=== PATIENT | female | born 1990 | race Caucasian/White ===

== ENCOUNTER 2016-11-12 05:32 | Inpatient (IN) | payer MEDICAID ==
[~2016-11-12] VITALS: Ht 170.2 cm; Wt 106.8 kg
[~2016-11-12 05:32] MED LIST: ACET-62 PO; prenatal vitamin
[2016-11-12] MEDS ORDERED: OXYTOCIN 30 UNIT in D5LR 500 ML SCH (05:45)
[2016-11-12] MEDS ORDERED: MAG-AL + SIM LIQUID 30 ML UDC PO PRN ×2 (05:45→17:15)
[2016-11-12] MEDS ORDERED: CALCIUM CARBONATE 500mg Chewable TAB PO PRN ×2 (05:45→17:15)
[2016-11-12] MEDS ORDERED: LIDOCAINE 1% (10mg/ml) 2ml SDV ID PRN (05:45)
[2016-11-12] MEDS ORDERED: ACETAMINOPHEN 500 MG TABLET PO PRN ×2 (05:45→17:15)
--- OUTSIDE RECORDS SUMMARY | 2016-11-12 05:45 | XMS REPORT | Continuity of Care Document ---
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 Name Role Phone ELIZA MADRIGAL MD Primary Care Physician [phone] Insurance Providers Guarantor Anastasiya Villalta Address [address] [place] [place] [address] Email [email or web address] Payer [facility] Community Plan Policy Number [id number] Subscriber's Name Anastasiya Villalta [place] Relationship 18 Self Effective Date 16 Expiration Date 16 Payer [facility] Policy Number [id number] Subscriber's Name Anastasiya Villalta [place] Relationship 18 Self Group Number [id number] Advance Directives Directive Response Recorded Date/Time Ordered Resuscitation Status Full Code 03/06/14 10:24pm DPOA for Healthcare Only No 07/17/16 3:54pm Living Will No 07/17/16 3:54pm Problems Active Problems Medical Problem Onset Date Status IUD check up Unknown Acute Normal delivery at term 03/17/2014 Acute 03/06/2014 Acute Status post normal vaginal delivery 03/17/2014 Acute Medications Current Home Medications Medication Dose Units Route Directions Days Qty Instructions Start Date Vitamin 1 Tab Daily 07/17/16 Past Home Medications Medication Directions Ordered Status Hydrocodone Bit/Acetaminophen 1 Tab Tablet, 1-2 Tab Oral Every 4 Hours as needed for Pain 03/17/14 Discontinued Social History Social History Problem Response Recorded Date/Time Onset Date Status Reason for Hospitalization Migraine, abdominal pain, dehydration 07/18/2016 7 :45am Not Applicable Not Applicable Hx Substance Use No 08/26/2014 7:08pm Not Applicable Not Applicable Has the pt used tobacco in the last 12 months No 07/17/2016 3:56pm Not Applicable Not Applicable Tobacco Usage none 08/26/2014 7:37pm Not Applicable Not Applicable Query Response Start Date Stop Date Smoking Status Never smoker Hospital Discharge Instructions Instructions: Care Instructions: I was in the hospital because (patient own words): "headache,stomachache,dehydration" Discharge Diet: Regular Diet Discharge Activity: N/A Follow Up Appointments: Follow up as scheduled with . Pending Lab / Results: No Pending Lab Expected Signs/Symptoms: N/A Notify Physician If: N/A During Business Hours:: N/A After Business Hours:: N/A Pain Management/Treatment: Continue Tylenol 1000mg every 6 hours as needed for headaches. Wound/Incision Care: N/A Condition at time of discharge: Good Plan of Care Discharge Date 07/18/16 8:11am Disposition 01 DISCHARGED HOME, SELF-CARE Instructions/Education Provided DI for Dehydration -- Adult Prescriptions See Medication Section Care Plan and Goals See Discharge Instructions Section Functional Status Query Response Date Recorded Mobility Status Ambulatory July 17, 2016 3:51pm Assistive Devices None July 17, 2016 3:51pm Activity Limitations Weakness Fatigue Dizziness Pain July 17, 2016 3:51pm Feeding Ability Independent July 17, 2016 3:51pm Toileting Ability Independent July 17, 2016 3:51pm Grooming Ability Independent July 17, 2016 3:51pm Dressing Ability Independent July 17, 2016 3:51pm Driving Ability Independent July 17, 2016 3:51pm Housework Ability Independent July 17, 2016 3:51pm Meal Preparation Ability Independent July 17, 2016 3:51pm Stair Climbing Ability Independent July 17, 2016 3:51pm Ability to complete ADL's impeded by No change July 17, 2016 3:54pm Cognitive/Perceptual Impairments Impaired vision July 17, 2016 3:51pm Visual Assistive Devices Glasses July 17, 2016 3:51pm Allergies, Adverse Reactions, Alerts Allergen Type Severity Reaction Status Last Updated NSAIDS (Non-Steroidal Anti-Inflamma Allergy Severe Active 07/17/16 Benzocaine Allergy Mild SWELLING Active 07/17/16 zinc chloride Allergy Mild SWELLING Active 07/17/16 Allantoin Allergy Mild SWELLING Active 11/23/16 Naproxen Allergy Mild SWELLING Active 07/17/16 Benzalkonium chloride Allergy Mild SWELLING Active 07/17/16 Carbamide peroxide Allergy Mild SWELLING Active 07/17/16 Immunizations Query Response on File Recorded Date/Time Hx Influenza Vaccination Y apr 2016 07/17/16 3:56pm Hx Influenza Vaccination Y apr 2016 07/17/16 3:56pm Influenza Vaccine Hx apr 2016 07/17/16 3:58pm Vital Signs Acute Vital Signs Vital Response Date/Time Temperature (Fahrenheit) 95.7 deg F (96.8 - 99.1) 07/17/2016 11:54pm Temperature (Calculated Celsius) 35.78825 degrees C (36.0 - 37.3) 07/17/2016 11:54pm Pulse Rate (adult) 64 bpm (60 - 100) 07/17/2016 11:54pm Respiratory Rate 14 breaths/min (10 - 20) 07/17/2016 11:54pm O2 Sat by Pulse Oximetry 98 % (90 - 100) 07/17/2016 11:54pm Oxygen Delivery Method Room Air 07/17/2016 11:54pm Blood Pressure 107/65 mm Hg 07/17/2016 11:54pm Blood Pressure Source Automatic Cuff 07/17/2016 11:54pm Height (Feet) 5 feet 07/17/2016 3:52pm Height (Inches) 7.00 inches 07/17/2016 3:52pm Weight (Kilograms) 102.600 kg 07/17/2016 3:52pm Body Mass Index (BMI) 35.4 07/17/2016 3:52pm Results Laboratory Results Test Name Result Units Flags Reference Collection Date/Time Result Date/ Time Comments White Blood Count 8.5 T/MM3 4.5-11.0 07/17/2016 10:57am 07/17/2016 11: 05am Red Blood Count 4.54 M/MM3 4.00-5.20 07/17/2016 10:57am 07/17/2016 11: 05am Hemoglobin 13.3 GM/DL 12-16 07/17/2016 10:57am 07/17/2016 11:05am Hematocrit 38.3 % 36-46 07/17/2016 10:57am 07/17/2016 11:05am Mean Corpuscular Volume 84.4 UM3 80-100 07/17/2016 10:57am 07/17/2016 11:05am Mean Corpuscular Hemoglobin 29.3 UUG 26-34 07/17/2016 10:57am 2015 11:05am Mean Corpuscular Hemoglobin Concent 34.7 GM/DL 31-37 07/17/2016 10:57am 07/17/2016 11:05am RDW Standard Deviation 39.6 FL 36.9-50.2 07/17/2016 10:57am 07/17/2016 11:05am Platelet Count 184 T/MM3 130-400 07/17/2016 10:57am 07/17/2016 11:05am Mean Platelet Volume 9.9 UM3 9.4-12.4 07/17/2016 10:57am 07/17/2016 11: 05am Icterus Index < 2 0-7 07/17/2016 10:57am 07/17/2016 11:14am Chemistry Specimen Hemolysis < 15 0-25 07/17/2016 10:57am 07/17/2016 11:14am 0-25: Specimen Exhibited No Hemolysis. Turbidity < 20 0-20 07/17/2016 10:57am 07/17/2016 11:14am Sodium Level 135 MEQ/L 134-144 07/17/2016 10:57am 07/17/2016 11:14am Potassium Level 3.8 MEQ/L 3.6-5 07/17/2016 10:57am 07/17/2016 11:14am Chloride Level 106 MEQ/L 98-107 07/17/2016 10:57am 07/17/2016 11:14am Carbon Dioxide Level 20 MEQ/L L 22-30 07/17/2016 10:57am 07/17/2016 11: 14am Anion Gap 9 MEQ/L 5-15 07/17/2016 10:57am 07/17/2016 11:14am Blood Urea Nitrogen 7.0 MG/DL 7-17 07/17/2016 10:57am 07/17/2016 11: 14am Creatinine 0.5 MG/DL L 0.7-1.2 07/17/2016 10:57am 07/17/2016 11:14am BUN/Creatinine Ratio 14 RATIO 6-26 07/17/2016 10:57am 07/17/2016 11: 14am Glomerular Filtration Rate Calc 152 07/17/2016 10:57am 07/17/2016 11:14am Glucose Level 77 MG/DL 65-110 07/17/2016 10:57am 07/17/2016 11:14am Calculated Osmolality 257 MOSM/KG L 261-280 07/17/2016 10:57am 2015 11:14am Calcium Level 8.7 MG/DL 8.4-10.2 07/17/2016 10:57am 07/17/2016 11:14am Total Bilirubin 0.50 MG/DL 0.20-1.30 07/17/2016 10:57am 07/17/2016 11: 14am Alkaline Phosphatase 74 U/L 38-126 07/17/2016 10:57am 07/17/2016 11: 14am Total Protein 6.5 G/DL 6.3-8.2 07/17/2016 10:57am 07/17/2016 11:14am Albumin 3.4 G/DL L 3.5-5.0 07/17/2016 10:57am 07/17/2016 11:14am Globulin 3.1 G/DL 2.4-3.6 07/17/2016 10:57am 07/17/2016 11:14am Albumin/Globulin Ratio 1.1 RATIO 1.1-2.2 07/17/2016 10:57am 07/17/2016 11:14am Aspartate Amino Transf (AST/SGOT) 17 U/L 14-36 07/17/2016 10:57am 07/17 11:14am Alanine Aminotransferase (ALT/SGPT) 26 U/L 9-52 07/17/2016 10:57am 11:14am Thyroid Stimulating Hormone (TSH) 0.89 MIU/L 0.47-4.68 07/17/2016 10: 57am 07/17/2016 11:44am Procedures Procedure Status Date Provider(s) HYDRATE IV INFUSION ADD-ON Completed 05/16/16 HYDRATE IV INFUSION ADD-ON Completed 05/16/16 HYDRATE IV INFUSION ADD-ON Completed 05/16/16 THER/PROPH/DIAG INJ IV PUSH Completed 05/16/16"INJECTION, ONDANSETRON HYDROCHLORIDE, PER 1 MG" Completed 05/16/16"RINGERS LACTATE INFUSION, UP TO 1000 CC" Completed 05/16/16"RINGERS LACTATE INFUSION, UP TO 1000 CC" Completed 05/16/16 Encounters Encounter Location Arrival/Admit Date Discharge/Depart Date Attending Provider Discharged Inpatient (obs) [facility] 07/17/16 3:15pm 07/18/16 8: 11am PRASHANTH BOUDREAUX MD Registered Recurring [facility] 07/17/16 10:25am CONSTANZA PIERRE MD Discharged Recurring [facility] 05/16/16 11:21am 05/16/16 3:45pm ARIEL SANDOVAL MD
--- OUTSIDE RECORDS SUMMARY | 2016-11-12 05:45 | XMS REPORT | Continuity of Care Document ---
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 Role Phone ELIZA MADRIGAL MD Primary Care Physician [phone] Insurance Providers Guarantor Villalta,Emma Orlin Address [address] [place] [address] Email [email or web address] Payer [facility] Community Plan Policy Number [id number] Subscriber's Name Anastasiya Villalta Relationship 18 Self Effective Date 16 Expiration Date 16 Advance Directives Directive Response Recorded Date/Time Ordered Resuscitation Status Full Code 03/06/14 10:24pm Problems Active Problems Medical Problem Onset Date Status IUD check up Unknown Acute Normal delivery at term 03/17/2014 Acute 03/06/2014 Acute Status post normal vaginal delivery 03/17/2014 Acute Medications Current Home Medications Medication Dose Units Route Directions Days Qty Instructions Start Date Acetaminophen 500 Mg Tablet 1-2 Tab Oral as needed for Pain Do not exceed 3,200 mg of acetaminophen in a 24 hours period. 10/23/16 Vitamin 1 Tab Daily 07/17/16 Past Home Medications Medication Directions Ordered Status Hydrocodone Bit/Acetaminophen 1 Tab Tablet, 1-2 Tab Oral Every 4 Hours as needed for Pain 03/17/14 Discontinued Social History Social History Problem Response Recorded Date/Time Onset Date Status Hx Substance Use No 08/26/2014 7:08pm Not Applicable Not Applicable Has the pt used tobacco in the last 12 months No 07/17/2016 3:56pm Not Applicable Not Applicable Tobacco Usage none 08/26/2014 7:37pm Not Applicable Not Applicable Query Response Start Date Stop Date Smoking Status Never smoker Hospital Discharge Instructions No hospital discharge instructions. Plan of Care Discharge Date 10/23/16 3:00pm Prescriptions See Medication Section Functional Status No functional status results. Allergies, Adverse Reactions, Alerts Allergen Type Severity Reaction Status Last Updated NSAIDS (Non-Steroidal Anti-Inflamma Allergy Severe Active 10/23/16 Benzocaine Allergy Mild SWELLING Active 10/23/16 zinc chloride Allergy Mild SWELLING Active 10/23/16 Allantoin Allergy Mild SWELLING Active 10/23/16 Naproxen Allergy Mild SWELLING Active 10/23/16 Benzalkonium chloride Allergy Mild SWELLING Active 10/23/16 Carbamide peroxide Allergy Mild SWELLING Active 10/23/16 Immunizations Query Response on File Recorded Date/Time Hx Influenza Vaccination Y apr 2016 07/17/16 3:56pm Hx Influenza Vaccination Y apr 2016 07/17/16 3:56pm Influenza Vaccine Hx apr 2016 07/17/16 3:58pm Vital Signs No known vital signs results. Results Laboratory Results Test Name Result Units [...] 07/17/2016 11:44am Procedures Procedure Status Date Provider(s) Comprehen metabolic panel Completed 07/17/16 Assay thyroid stim hormone Completed 07/17/16 Complete cbc automated Completed 07/17/16 Hydrate iv infusion add-on Completed 07/17/16 Ther/proph/diag iv inf init Completed 07/17/16 Tx/proph/dg addl seq iv inf Completed 07/17/16 Tx/pro/dx inj new drug addon Completed 07/17/16 541675"INJECTION, DIMENHYDRINATE, UP TO 50 MG" Completed 07/17/16 608936"INJECTION, ONDANSETRON HYDROCHLORIDE, PER 1 MG" Completed 07/17/16 199921"INFUSION, NORMAL SALINE SOLUTION , 250 CC" Completed 07/17/16 [id number]"RINGERS LACTATE INFUSION, UP TO 1000 CC" Completed 07/17/16 D5LR 1000 ML Completed 07/17/16 Extremity study Completed 09/06/16 Encounters Encounter Location Arrival/Admit Date [facility]/16 3:00pm CONSTANZA PIERRE MD Registered Clinic [facility] 09/06/16 2:59pm PRASHANTH BOUDREAUX MD Discharged Recurring [facility] 07/17/16 10:25am 08/24/16 11: 07pm CONSTANZA PIERRE MD
--- OUTSIDE RECORDS SUMMARY | 2016-11-12 05:45 | XMS REPORT | Continuity of Care Document ---
Author Author [facility] Organization [facility] Address Unknown Phone Unavailable Care Team Providers Care Mapping Supervisor Name Role Phone ELIZA MADRIGAL MD Primary Care Physician [phone] Insurance Providers Guarantor Anastasiya Villalta Address [address] [place] [address] Email [email or web address] Payer [facility] Community Plan Policy Number [id number] Subscriber's Name Anastasiya Villalta [place] Relationship 18 Self Effective Date 16 Expiration Date 16 Payer [facility] Policy Number [id number] Subscriber's Name Anastasiya Villalta [place] Relationship 18 Self Group Number [id number] Advance Directives Directive Response Recorded Date/Time Ordered [...] - 99.1) 07/17/2016 11:54pm Temperature (Calculated Celsius) 35.22527 degrees C (36.0 - 37.3) 07/17/2016 11:54pm [...] Date Provider(s) HYDRATE IV INFUSION ADD-ON Completed 07/17/16 HYDRATE IV INFUSION ADD-ON Completed 07/17/16 THER/PROPH/DIAG INJ IV PUSH Completed 07/17/16 INITIAL OBSERVATION CARE Completed 07/17/16 INITIAL OBSERVATION CARE Completed 07/17/16 INITIAL OBSERVATION CARE Completed 07/17/16 [id number]"INJECTION, PROCHLORPERAZINE, UP TO 10 MG" Completed 07/17/16 D5LR 1000 ML Completed 07/17/16 D5LR 1000 ML Completed 07/17/16 D5LR 1000 ML Completed 07/17/16 Encounters Encounter Location Arrival/Admit Date Discharge/Depart Date Attending Provider Discharged Inpatient (obs) [facility] 07/17/16 3:15pm 07/18/16 8: 11am PRASHANTH BOUDREAUX MD Discharged Recurring [facility] 07/17/16 10:25am 08/24/16 11: 07pm CONSTANZA PIERRE MD
[2016-11-12 06:22] LABS: HCT - HEMATOCRIT 34.3 % (36-46); HGB - HEMOGLOBIN 11.1 GM/DL (12-16); MEAN CORPUSCULAR HGB 25.4 UUG (26-34); MEAN CORPUSCULAR HGB CONC(MCHC 32.4 GM/DL (31-37); MEAN CORPUSCULAR VOLUME 78.5 UM3 (80-100); MEAN PLATELET VOLUME 10.6 UM3 (9.4-12.4); RED BLOOD COUNT 4.37 M/MM3 (4.00-5.20); WBC - WHITE BLOOD COUNT 11.9 T/MM3 (4.5-11.0)
[2016-11-12 06:23] VITALS: BP 152/82; PULSE 96; RESP 16; TEMP 98.1
--- NOTE | 2016-11-12 08:21 | ANESOB ---
Epidural/ Date/Time DATE: 11/12/16 TIME: 08:19 Preop Diagnosis Height: 5 ' 7.00 " Weight: 106.800 kg BMI: kg/m2 Temperature: 98.1 Blood Pressure: 152/82 Heart Rate: 96 Respiratory Rate: 16 P:1 Medications & Allergies Inpatient Medications Current Medications Medications (Trade) Dose Ordered Sig/Satish Start Time Stop Time Status Last Admin Dose Admin Lidocaine HCl 0.2 mg 0.2 mg PRN PRN 11/12/16 05:45 Lactated Ringer's (Lactated Ringers) 1,000 ml @ 0 mls/hr Q0M PRN 11/12/16 05:42 Acetaminophen (Tylenol Extra Strength) 1-2 TABS = 500-1,000 MG Q4H PRN 11/12/16 05:45 Al Hydroxide/Mg Hydroxide (Maalox) 30 ml Q4H PRN 11/12/16 05:45 Calcium Carbonate 1-2 TABS Q2H PRN 11/12/16 05:45 Dextrose/Lactated Ringer's 1,000 ml @ 0 mls/hr Q0M PRN 11/12/16 06:00 Oxytocin/Dextrose/ Lactated Ringer's (Pitocin/D5lr) 503 ml @ 0 mls/hr Q0M 11/12/16 05:45 Discontinued Medications Acetaminophen (Acetaminophen) 500 Mg Tablet, 1-2 TAB PO for PAIN, (Reported) Do not exceed 3,200 mg of acetaminophen in a 24 hours period. [ vitamin] , 1 TAB DAILY, (Reported) Coded Allergies: NSAIDS (Non-Steroidal Anti-Inflamma (Verified Allergy, Severe, 10/23/16) reports swelling in eyes and lips with nsaids allantoin (Verified Allergy, Mild, SWELLING, 10/23/16) benzalkonium chloride (Verified Allergy, Mild, SWELLING, 10/23/16) benzocaine (Verified Allergy, Mild, SWELLING, 10/23/16) carbamide peroxide (Verified Allergy, Mild, SWELLING, 10/23/16) naproxen (Verified Allergy, Mild, SWELLING, 10/23/16) zinc chloride (Verified Allergy, Mild, SWELLING, 10/23/16) Medical/Surgical History Anesthesia PMH: Reports: Asthma, , Denies: *Diabetes, *Hypertension, * MA, Anesthesia Reactions, Bld Transfusion Reaction, CHF, COPD, CVA/Stroke/TIA, Cancer, Malignant Hyperthermia, Seizures Smoking Status: Current every day smoker Does patient use chewing tobac: No Second Hand Exposure: No Substance Use Type: does not use Alcohol Intake: none Anesthesia Adverse Reactions: FOUND none Family Hx of Anesthesia Advers: none Hx of Motion Sickness: No Complications During : No Pertinent Findings Laboratory Tests 11/12/16 06:06 EKG Rhythm: Sinus Rhythm Physical Exam Respiratory: Lungs clear Cardiovascular: Regular rate, rhythm Airway Assessment Mallampati Score: II TMD: 3 Fingerbreadths Neck Extension: Good Overall Assessment: May Be Diff Intubation ASA: 2 Discussion Discussed risks/options/alternatives of anesthesia. Patient consents. Nursing pain assessment noted. Present for Discussion: Present: Spouse Attestation Statement Prior to the delivery of any anesthetic medication, I examined the patient, developed the plan, obtained the patient's consent and discussed the risk and benefits of the procedure with the patient/guardian. If the note happens to be signed after anesthesia start time, it is only due to providing efficient care of the patient and documenting at a time when the computer is available. PARVEEN NOLAN RIG WELDER Nov 12, 2016 08:21
[2016-11-12] MEDS: D5LR 1,000 ML IV PRN ×2 (10:55→15:42)
[2016-11-12] MEDS: LR 1,000 ML IV PRN ×2 (10:55→15:41)
[2016-11-12] MEDS ORDERED: NALBUPHINE 10mg/ml INJECTION IV ONE (13:15)
[2016-11-12] MEDS ORDERED: ONDANSETRON 4mg/2ml INJECTION IV PRN (16:30)
[2016-11-12] MEDS ORDERED: DiphenhydrAMINE 50 MG/ML INJECTION IV PRN (16:30)
[2016-11-12] MEDS ORDERED: ROPIVACAINE 1% 200 MG, SUFENTANIL 50 MCG in NORMAL SALINE 80 ML EPI PRN (16:30)
[2016-11-12] MEDS ORDERED: NALOXONE 0.4mg/ml INJECTION IV PRN (16:30)
[2016-11-12] MEDS ORDERED: OXYTOCIN 30 UNIT in D5W 500 ML IV ONE (17:01)
[2016-11-12] MEDS ORDERED: PHENYLEPHRINE RECTAL SUPPOSITORY RECTALLY PRN (17:15)
[2016-11-12] MEDS ORDERED: MILK OF MAGNESIA 30 ML SUSP PO PRN (17:15)
[2016-11-12] MEDS ORDERED: HYDROCORTISONE 2.5% CREAM 30 GM RECTALLY PRN (17:15)
[2016-11-12] MEDS ORDERED: DiphenhydrAMINE 25 MG CAPSULE PO PRN (17:15)
--- NOTE | 2016-11-12 17:44 | LDNFPDOC ---
Delivery Note Date of Delivery 11/12/16 Diagnosis: : 2 Para: 1 Rubella: Immune GBS Status: Negative Weeks: 39 Days: 4 Sex and Viability: Viable Female APGARS: Name: Rasta Johnson Weight: 3451 grams Estimated Blood Loss: 500 cc Brief Description Patient is a 26 year old, 2, para 1 who presented to labor and delivery at 39 weeks 4 days for scheduled induction of labor for logistics. Maternal and complications included asthma and Rh negative status. On admission, patient was only dilated to 1 centimeters despite feeling irregular contractions. heart rate remained category 1 so Pitocin was started to induce labor. She progressed to 3 centimeters 4 hours later so artificial rupture of membranes as performed to augment labor, copious clear fluid was returned. Patient progressed to complete dilation approximately 5 hours later. No other complication noted. Patient remained in the labor room, was prepped and draped in the usual sterile fashion. Infant delivered spontaneously over a small first degree laceration. The infant was placed on the patient's abdomen for [id number] after she had a good vigorous cry. The cord was clamped and cut after a delay of 1.5 minutes, and the placenta spontaneously delivered without difficulty. The first degree laceration was repaired in the usual fashion using 2-0 chromic suture. A vaginal sweep was then performed. Hemostasis was noted. No complications. No atony. and mother are doing well at this time. PRASHANTH BOUDREAUX MD Nov 12, 2016 17:05
--- NOTE | 2016-11-12 18:20 | NUR ---
Epidural Epidural catheter removed without complications, tip intact, no S/S of infection noted. Area cleansed with alcohol, betadine and covered with a bandaid. Pt. educated about S/S of infection and to call doctor with concerns.
[2016-11-12 21:06] VITALS: BP 127/58; PULSE 83; RESP 18; TEMP 98.4; O2SAT 100
--- NOTE | 2016-11-12 21:45 | NUR ---
Progress Note Pt ambulated to bathroom with RN supervision and denied dizziness. Pt voided w/o difficulty. RN educated pt about pericare and pad changes. Pt verbalized understanding. RN provided pericare and skin care. Pad and ice pack changed with tucks pads and benzo spray. Underpad and linens changed. Will continue to monitor per plan of care.
[2016-11-12] MEDS: LR 1,000 ML IV SCH (23:55)
[2016-11-13] VITALS (23 sets, daily range): BP systolic 95–123; BP diastolic 51–77; PULSE 56–93; RESP 14–20; TEMP 97.4–98.2; O2SAT 97–100
[2016-11-13] MEDS ORDERED: ONDANSETRON 4mg/2ml INJECTION IV PRN
[2016-11-13] MEDS: LR 1,000 ML IV SCH (00:01)
--- NOTE | 2016-11-13 02:18 | NUR ---
Shift Summary Pt's VS stable. Fundus firm, minimal lochia, and voiding w/o difficulty. Pt tolerating po fluids and regular diet. Pain controlled with po pain meds as ordered, Tylenol. Pt performing cares for self and baby with help of FOB at bedside. Pt up ad monica in room. Pt NPO after Midnight and LR infusing @ 125mls/hr. Will continue to monitor per plan of care.
--- NOTE | 2016-11-13 02:18 | NUR ---
Chart Check 24 hour chart check completed
[2016-11-13] MEDS: MORPHINE SULFATE 4 MG SYRINGE IV PRN ×2 (04:21→10:13)
[2016-11-13 05:14] LABS: HCT - HEMATOCRIT 32.4 % (36-46); HGB - HEMOGLOBIN 10.3 GM/DL (12-16); MEAN CORPUSCULAR HGB 25.2 UUG (26-34); MEAN CORPUSCULAR HGB CONC(MCHC 31.8 GM/DL (31-37); MEAN CORPUSCULAR VOLUME 79.4 UM3 (80-100); MEAN PLATELET VOLUME 10.5 UM3 (9.4-12.4); RED BLOOD COUNT 4.08 M/MM3 (4.00-5.20); WBC - WHITE BLOOD COUNT 11.8 T/MM3 (4.5-11.0)
--- NOTE | 2016-11-13 06:27 | NUR ---
PPTL Leaving [facility] unit for OR for surgery.
[2016-11-13] MEDS ORDERED: BUPIVACAINE 0.25% (2.5mg/ml) INJ 30ml SDV ONE (06:58)
--- NOTE | 2016-11-13 07:01 | ANESPREOP ---
Anesthesia Record Date and Time DATE: 11/13/16 TIME: 07:00 Pre-Op Diagnosis Sterilization Proposed Surgical Procedure PPTL NPO since: Midnight Allergies: Coded Allergies: NSAIDS (Non-Steroidal Anti-Inflamma (Verified Allergy, Severe, 10/23/16) reports swelling in eyes and lips with nsaids allantoin (Verified Allergy, Mild, SWELLING, 10/23/16) benzalkonium chloride (Verified Allergy, Mild, SWELLING, 10/23/16) benzocaine (Verified Allergy, Mild, SWELLING, 10/23/16) carbamide peroxide (Verified Allergy, Mild, SWELLING, 10/23/16) naproxen (Verified Allergy, Mild, SWELLING, 10/23/16) zinc chloride (Verified Allergy, Mild, SWELLING, 10/23/16) Ht/Wt/BMI Height: 5 ' 7.00 " Weight: 106.800 kg BMI: kg/m2 Vital Signs Date Time Temp Pulse Resp B/P Pulse Ox O2 Delivery O2 Flow Rate FiO2 11/13/16 06:22 88 111/77 11/13/16 06:14 97.6 18 99 Room Air Medications Inpatient Medications Current Medications Medications (Trade) Dose Ordered Sig/Satish Start Time Stop Time Status Last Admin Dose Admin Lidocaine HCl 0.2 mg 0.2 mg PRN PRN 11/12/16 05:45 11/12/16 17:05 DC Lactated Ringer's (Lactated Ringers) 1,000 ml @ 0 mls/hr Q0M PRN 11/12/16 05:42 11/12/16 17:05 DC 11/12/16 15:41 0 MLS/HR Acetaminophen (Tylenol Extra Strength) 1-2 TABS = 500-1,000 MG Q4H PRN 11/12/16 05:45 11/12/16 17:05 DC Al Hydroxide/Mg Hydroxide (Maalox) 30 ml Q4H PRN 11/12/16 05:45 11/12/16 17:05 DC Calcium Carbonate 1-2 TABS Q2H PRN 11/12/16 05:45 11/12/16 17:05 DC Dextrose/Lactated Ringer's 1,000 ml @ 0 mls/hr Q0M PRN 11/12/16 06:00 11/12/16 17:05 DC 11/12/16 15:42 0 MLS/HR Oxytocin 30 unit/ Dextrose/Lactated Ringer's 503 ml @ 0 mls/hr Q0M 11/12/16 05:45 11/12/16 17:05 DC 11/12/16 10:54 0 MLS/HR Ropivacaine/ Sufentanil Citrate/Sodium Chloride (Naropin/Sufenta/ NS) 101 ml @ 10 mls/hr PRN PRN 11/12/16 16:30 11/12/16 17:04 DC Naloxone HCl (Narcan) 0.1 mg Q2M PRN 11/12/16 16:30 11/12/16 17:04 DC Ondansetron HCl (Zofran) 4 mg Q6H PRN 11/12/16 16:30 11/12/16 17:05 DC Diphenhydramine HCl (Benadryl) 25-50 MG = 0.5-1 ML Q3H PRN 11/12/16 16:30 11/12/16 17:05 DC Acetaminophen/ Hydrocodone Bitart ([place] 5/325) Not to exceed 10 tabs in... Q4H PRN 11/12/16 17:15 Acetaminophen (Tylenol Extra Strength) 1-2 TABS = 500-1,000 MG Q4H PRN 11/12/16 17:15 11/12/16 20:05 1,000 MG Docusate Calcium (SURFAK 240 mg) 240 mg DAILY 11/13/16 09:00 Magnesium Hydroxide (Mom) 30 ml DAILY PRN 11/12/16 17:15 Calcium Carbonate (TUMS Regular Strength) 500-1,000 mg Q2H PRN 11/12/16 17:15 Diphenhydramine HCl (Benadryl) 1-2 TABS Q6H PRN 11/12/16 17:15 Al Hydroxide/Mg Hydroxide (Maalox) 30 ml Q4H PRN 11/12/16 17:15 Phenylephrine HCl (Anusol Suppository) 1 supp PRN PRN 11/12/16 17:15 Hydrocortisone 1 applic 1 applic PRN PRN 11/12/16 17:15 Lactated Ringer's (Lactated Ringers) 1,000 ml @ 125 mls/hr Q8H 11/13/16 00:00 11/12/16 23:55 125 MLS/HR Morphine Sulfate (Morphine) see above Q2H PRN 11/13/16 00:00 11/13/16 12:00 11/13/16 04:21 4 MG Ondansetron HCl (Zofran) 4 mg Q4H PRN 11/13/16 00:00 Discontinued Medications Acetaminophen (Acetaminophen) 500 Mg Tablet, 1-2 TAB PO for PAIN, (Reported) Do not exceed 3,200 mg of acetaminophen in a 24 hours period. [ vitamin] , 1 TAB DAILY, (Reported) Currently on Beta J Luis: No Medical/Surgical History Anesthesia PMH: Reports: Asthma, Cardiac Arrythmia (Sinus Arrythmia), , Denies: *Diabetes, *Hypertension, *FL, Anesthesia Reactions, Blood Transfusion Reac, CHF, COPD, CVA/Stroke/TIA, Cancer, Malignant Hyperthermia, Seizures, Sleep Apnea Smoking Status: Never smoker Use Chewing Tobacco?: No Second Hand Exposure: No Substance Use Type: does not use Past Surgical History Orthopedic Surgeries: Yes - THUMB, KNEE Abdominal Surgeries: Genitourinary Surgeries: Cardiac Surgeries: Endocrine Surgeries: Reproductive Surgeries: Neurological Surgeries: Ear Surgeries: Nose Surgeries: Throat Surgeries: Yes - TONSILS Other Surgeries: Yes - THUMB, KNEE Anesthesia Adverse Reactions: FOUND none Family Hx of Anesthesia Advers: none Hx of Motion Sickness: No Pertinent Findings Laboratory Tests 11/13/16 04:59 EKG Rhythm: Sinus Arhythmia Physical Exam Respiratory: Lungs clear Cardiovascular: FOUND Irregularly irregular Airway Assessment Mallampati Score: II TMD: 3 Fingerbreadths Neck Extension: Good Overall Assessment: May Be Diff Intubation ASA: 2 Plan Regional: Spinal Discussion Discussed risks/options/alternatives of anesthesia and questions answered. Patient consents. Nursing pain assessment noted. Present: Spouse Attestation Statement Prior to the delivery of any anesthetic medication, I examined the patient, developed the plan, obtained the patient's consent and discussed the risk and benefits of the procedure with the patient/guardian. PARVEEN NOLAN CRNA Nov 13, 2016 07:01
--- NOTE | 2016-11-13 07:04 | NUR ---
Rh FACTOR CONSULT: Mother Blood Type = A neg. Child Blood Type = O positive Hgb / Adult Ratio = 0.0005 Will give Rho D Immunglobulin 300mcg IV x 1 dose. Thank you.
[2016-11-13] MEDS ORDERED: PROPOFOL 500mg 50 ML IV ONE (07:11)
--- NOTE | 2016-11-13 07:12 | PNPDOC ---
Prog Note 11/13/16 No complaints this AM. NPO since midnight. Normal lochia, denies pain. AFVSS. NAD Abdomen is soft, nontender, fundus firm Janny is dry Hgb 11.1 (AP) --> 10.3 (PPD) 26 year old now PPD1 s/p with normal EBL, doing well, desires permanent sterilization. --Proceed with PP BTL today. Consent in chart. Risks of surgery including but not limited pain, bleeding, infection, bowel injury, large incision, discussed. We also discussed high risk of regret (especially under age 30), risk of failure 1/400, small increased risk of ectopic . She desires to proceed with surgery. --Continue routine PP care. --Questions solicited and answered. PRASHANTH BOUDREAUX MD Nov 13, 2016 07:11
[2016-11-13] MEDS ORDERED: EPHEDRINE SULFATE 50mg/ml INJECTION ONE (07:54)
--- NOTE | 2016-11-13 08:30 | GYNOPNOTE1 ---
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
--- NOTE | 2016-11-13 08:59 | ANESPO ---
Post-Op Note Date 11/13/16 Time: 08:58 Status Pt Participated in Evaluation: Pt participated in person Vital Signs Date Time Temp Pulse Resp B/P Pulse Ox O2 Delivery O2 Flow Rate FiO2 11/13/16 08:45 97.9 80 16 102/52 98 Room Air 11/13/16 08:40 2.00 Respiratory Function: Airway patent, Regular respirations Cardiovascular Function: Regular pulse Mental Status: Alert/oriented Pain Level Intensity: 0 Hydration: IV infusing Complications during Recovery None apparent Follow-Up Instructions Instructions Per Surgeon YESSICA LIAO CRNA Nov 13, 2016 08:59
[2016-11-13] MEDS ORDERED: DOCUSATE CALCIUM 240 MG CAPSULE PO SCH (09:00)
[2016-11-13] MEDS ORDERED: RHO IMMUNE GLOBULIN IV ONE (09:00)
--- NOTE | 2016-11-13 09:04 | NUR ---
Post-Op Returns to [facility] after PPTL recovery.
[2016-11-13] MEDS: HYDROCODONE/APAP 5 mg/325 mg TABLET PO PRN ×4 (09:13→21:22)
--- NOTE | 2016-11-13 09:13 | NUR ---
Pain C/O incisional pain 5/10. Ash 5/325 2 tabs given.
--- NOTE | 2016-11-13 09:23 | GYNOPNOTE ---
PROFESSOR OF [employer]IMINAL JUSTICE Operative Note Date of Operation: 11/13/16 Preoperative Diagnosis: Sterilization Postoperative Diagnosis: Same as Preoperative Procedure: Tubal Ligation ( - bilateral partial salpingectomy ( [place] tubal)) Surgeon: Prashanth Garcia Anesthesia Type: spinal Complications: None Estimated Blood Loss: 5 cc Findings Normal fallopian tube and ovaries bilaterally. Description of Procedure After obtaining informed consent, the patient was taken to the operating room. After adequate anesthesia was obtained, the patient was placed in supine position, ensuring proper positioning and cushioning to avoid injury. A time out was performed to ensure correct patient and correct procedure. A small infraumbilical incision was made with a knife. An Allis clamp was used to bluntly dissect down to the level of the fascia. The fascia was then identified , grasped with two Allis clamps, elevated, and entered sharply with a knife. This incision was extended laterally with curved Booth scissors. The peritoneum was then entered bluntly. A fallopian tube was grasped with a Celina clamp and brought out through the incision until the fimbriae were identified. The midsegment was grasped, a hemostat placed through an avascular portion of the mesosalpinx, the jaws opened to separate mesosalpinx from tubal segment to be resected, and two 0-chromic ties were brought through the resulting defect. A 2 cm segment of tube was then doubly ligated and resected, and the severed ends of tube allowed to return to the abdominal cavity after hemostasis was confirmed. A similar procedure was performed on the other fallopian tube, resecting a 2 cm segment. The fascia was reapproximated with 0-vicryl. The skin was closed with 4-0 monocryl, and a sterile dressing was applied. The patient was taken to the Recovery Room in satisfactory condition. Sponge, needle, and instrument counts were correct at the end of the procedure. PRASHANTH GARCIA MD Nov 13, 2016 08:30
--- NOTE | 2016-11-13 10:51 | NUR ---
Rhophylac Rhophylac 300 MCG given IV
--- NOTE | 2016-11-13 15:32 | NUR ---
CM THIS WORKER MET WITH PT ON THIS DATE. PT WAS SITTING IN BED AND FOB IN CHAIR SLEEPING. THIS WORKER INTRODUCED SELF AND ROLE OF CASE MANAGEMENT. PT REPORTED THAT SHE AND FOB HAVE SUPPORT FROM FAMILY IN [place]. MOTHER REPORTED THAT SHE HAS WIC SERVICES AND PLANNING TO CONTINUE USING THOSE IN [place]. PT WAS GIVEN INFORMATION REGARDING THE [facility]. PT IS INTERESTED IN SERVICES. PT REPORTED THAT SHE HAS BREAST PUMP AT HOME. MOTHER REPORTED THAT SHE HAS EVERYTHING ELSE AT HOME FOR BABY (LEFT FROM [place]). MOTHER DENIED NEEDS AT THIS TIME. PT WAS GIVEN THIS WORKER'S CONTACT INFORMATION AND ENCOURAGED TO CONTACT THIS WORKER WITH ANY NEEDS.
[2016-11-14] MEDS: HYDROCODONE/APAP 5 mg/325 mg TABLET PO PRN ×2 (01:25→05:27)
--- NOTE | 2016-11-14 01:38 | NUR ---
Shift Summary VSS, voiding freely, pain controlled with PO pain medication. Patient ambulates freely in the room, performs all self and cares. FOB went home with other children for the night. Mother and infant bonding well, plannning on discharge for later today.
[2016-11-14 05:30] VITALS: BP 100/68; PULSE 80; RESP 16; TEMP 97.9; O2SAT 99
[2016-11-14 05:35] LABS: HGB - HEMOGLOBIN 9.8 GM/DL (12-16)
--- NOTE | 2016-11-14 08:31 | PNPDOC ---
Progress Note PPD2 Weeks: 39 Days: 4 Rubella: Immune GBS: Negative Blood Type:A neg Subjective 11/14/16 Lochia: Minimal Pain: Controlled Voiding: Voiding Nausea and Vomiting: No Nausea/Vomiting Objective Vital Signs Date Time Temp Pulse Resp B/P Pulse Ox O2 Delivery O2 Flow Rate FiO2 11/14/16 05:30 97.9 80 16 100/68 99 Room Air 11/13/16 08:40 2.00 Urine Output: Good General: Alert and Oriented Abdomen: Fundus Firm, Non-tender, Non-distended Incision: Clean/Dry/Intact, No Erythema Edema: None Assessment SP, , Tubal Ligation, Anemia Plan Routine Care, Discharge Home, Continue PNV PRASHANTH BOUDREAUX MD Nov 14, 2016 08:31
[2016-11-14] MEDS ORDERED: HYDR-3995 PO (08:36)
[2016-11-14] MEDS ORDERED: DOCU-168 PO (08:36)
== END 2016-11-14 11:05 | disposition home or self-care (01) | DRG 767 ==
LOC: MC 05:32
PROVIDERS: ADMIT Obstetrics & Gynecology; ATTEND Obstetrics & Gynecology
PROC: 10E0XZZ Delivery of Products of Conception, External Approach (ICD-10-PCS; principal; 2016-11-12)
PROC: 0HQ9XZZ Repair Perineum Skin, External Approach (ICD-10-PCS; 2016-11-12)
PROC: 10907ZC Drainage of Amniotic Fluid, Therapeutic from Products of Conception, Via Natural or Artificial Opening (ICD-10-PCS; 2016-11-12)
PROC: 3E033VJ Introduction of Other Hormone into Peripheral Vein, Percutaneous Approach (ICD-10-PCS; 2016-11-12)
PROC: 0UB70ZZ Excision of Bilateral Fallopian Tubes, Open Approach (ICD-10-PCS; 2016-11-13)
DX: O26.893 Other specified pregnancy related conditions, third trimester (principal); Z30.2 Encounter for sterilization; O70.0 First degree perineal laceration during delivery; O32.8XX0 Maternal care for other malpresentation of fetus, not applicable or unspecified; O99.52 Diseases of the respiratory system complicating childbirth; J45.909 Unspecified asthma, uncomplicated; O99.02 Anemia complicating childbirth; D50.9 Iron deficiency anemia, unspecified; D50.8 Other iron deficiency anemias; Z3A.39 39 weeks gestation of pregnancy; Z37.0 Single live birth
CPT/HCPCS: 36415; 85018; 85027; 85460